=== PATIENT | female | born 2000 | race Caucasian/White ===

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

== ENCOUNTER 2021-11-06 23:02 | Emergency (ER) | payer SELFPAY | END 2021-11-07 03:40 | disposition home or self-care (01) | LOC: MW.ED 23:02 | DX: O20.0 Threatened abortion (principal); F17.210 Nicotine dependence, cigarettes, uncomplicated; Z91.013 Allergy to seafood; Z88.1 Allergy status to other antibiotic agents | CPT/HCPCS: 36415; 36430; 76802; 76802-26; 81025; 84702; 85025; 86850; 86900; 86901; 99284; 99284-25; J2790 ==

== ENCOUNTER 2022-03-11 02:22 | Emergency (ER) | payer SELFPAY | END 2022-03-11 02:49 | LOC: MW.ED 02:22 | DX: Z02.89 Encounter for other administrative examinations (principal); Z91.013 Allergy to seafood | CPT/HCPCS: 99283 ==

== ENCOUNTER 2022-07-05 10:49 | Emergency (ER) | payer SELFPAY ==
[2022-07-05] MEDS ORDERED: Sodium Chloride 0.9% 10 ML Syringe FLUSH PRN (11:00)
[2022-07-05] MEDS ORDERED: Sodium Chloride 0.9% 2.5 ML Syringe FLUSH PRN (11:00)
[2022-07-05] MEDS ORDERED: Sodium Chloride 0.9% 1,000 ML IV STA (11:26)
[2022-07-05 12:04] LABS: CARBON DIOXIDE,CO2 26.3 mmol/L (21.0-32.0); POTASSIUM,K 3.9 mmol/L (3.5-5.1)
[2022-07-05 12:56] LABS: C. TRACHOMATIS BY PCR NOT DETECTED; N. GONORRHOEAE BY PCR NOT DETECTED
== END 2022-07-05 13:45 | disposition home or self-care (01) ==
LOC: MW.ED 10:49
DX: O26.892 Other specified pregnancy related conditions, second trimester (principal); O99.322 Drug use complicating pregnancy, second trimester; Z67.21 Type B blood, Rh negative; F12.90 Cannabis use, unspecified, uncomplicated; O09.32 Supervision of pregnancy with insufficient antenatal care, second trimester; Z3A.21 21 weeks gestation of pregnancy
CPT/HCPCS: 76805; 80053; 81001; 84702; 85025; 86900; 86901; 87086; 87491; 87591; 93005; 96360; 99284; J3490; J7030; 93010; 99283